=== PATIENT | male | born 1985 | race Caucasian/White ===

== ENCOUNTER 2021-06-08 13:34 | Emergency (ER) | payer OTHER, BC ==
[~2021-06-08] VITALS: Ht 182.9 cm; Wt 65.8 kg
[2021-06-08 14:45] LABS: ABSOLUTE EOSINOPHILS 0.1 thou/uL (0.0-0.7); ABSOLUTE MONOCYTES 0.7 thou/uL (0.0-1.2); ABSOLUTE NEUTROPHILS 8.7 thou/uL (1.6-8.1); BASOPHILS 0.5 %; EOSINOPHILS 1.2 %; HEMATOCRIT 49.4 % (42.0-52.0); HEMOGLOBIN 17.3 gm/dL (14.0-18.0); LYMPHOCYTES 9.5 %; MCV 99.9 fL (80.0-100.0); MONOCYTES 6.7 %; MPV 7.9 fl. (7.2-11.1); NUCLEATED RBCS 0 /100WBC; PLATELET COUNT* 165 thou/uL (150-400); POLYS 82.1 %; RBC 4.95 mil/uL (4.50-6.00); RDW-CV 13.4 % (10.5-14.5); WBC 10.6 thou/uL (4.0-11.0)
[2021-06-08 14:55] LABS: CALCIUM 9.2 mg/dL (8.5-10.1); CREATININE 0.9 mg/dL (0.6-1.3); POTASSIUM 3.7 mmol/L (3.5-5.1)
[2021-06-08 15:11] LABS: ALBUMIN 4.1 g/dL (3.4-5.0); TOTAL BILIRUBIN 0.8 mg/dL (<0.1-1.0); TOTAL PROTEIN 7.2 g/dL (6.4-8.2)
--- NOTE | 2021-06-08 15:46 | EKG ---
[place] [address] ELECTROCARDIOGRAM REPORT Name: MIRIANVINICIUS Room: [facility]#: [id number] Admission: 06/08/21 Attend Phys: Discharge: Date of : 85 Date of Service: 06/08/21 1453 Report #: [id number] THIS REPORT FOR: //name// [facility] ED Test Date: 2021-06-08 Test Time: 14:53:35 Pat Name: VINICIUS VELA Department: Room: Gender: Photography Instructor: : 1985 Requested By: Fiona Pritchett Order Number: [id number] MD: Chino Schulz Measurements Intervals [place] Rate: 82 P: 76 VA: 146 QRS: 88 QRSD: 89 T: 70 QT: 400 QTc: 468 Interpretive Statements RsR' in V1 sinus rhythm No previous ECG available for comparison Electronically Signed On 06-08-2021 15:46:32 CDT by Chino Schulz [email or web address] <ELECTRONICALLY SIGNED> By: Chino Schulz MD, [facility] 06/08/21 1546 1453 52 Chino Schulz MD, FACC /EPI
[2021-06-08] MEDS ORDERED: IBUPROFEN 800800 M1 PO (16:23)
[2021-06-08] MEDS ORDERED: CEPHALEXIN500 MG PO (16:23)
[2021-06-08 17:35] LABS: URINE BILIRUBIN NEGATIVE (Negative); URINE BLOOD TRACE (Negative); URINE CLARITY CLEAR; URINE COLOR YELLOW; URINE GLUCOSE-RANDOM NEGATIVE (Negative); URINE KETONES 1+ (Negative); URINE LEUKOCYTES-REFLEX NEGATIVE (Negative); URINE NITRITE-REFLEX NEGATIVE (Negative); URINE PROTEIN NEGATIVE (Negative); URINE SPECIFIC GRAVITY 1.025 (1.005-1.030); URINE UROBILINOGEN 0.2 E.U./dl (0.2-1.0)
[2021-06-08] MEDS ORDERED: NORCO5 PO (17:37)
[2021-06-08 17:43] LABS: AMP/METHAMP Negative (Negative); BARBITURATES Negative (Negative); BENZODIAZEPINES Negative (Negative); COCAINE Negative (Negative); METHADONE Negative (Negative); OPIATES Negative (Negative); PCP Negative (Negative); THC POSITIVE (Negative)
[2021-06-08 18:02] VITALS: BP 135/92
== END 2021-06-08 18:03 | disposition home or self-care (01) ==
LOC: M.ERS 13:34
PROVIDERS: Nurse Practitioner Family
DX: S02.2XXA Fracture of nasal bones, initial encounter for closed fracture (principal); S02.40CA Maxillary fracture, right side, initial encounter for closed fracture; S01.21XA Laceration without foreign body of nose, initial encounter; S00.03XA Contusion of scalp, initial encounter; S06.0X9A Concussion with loss of consciousness of unspecified duration, initial encounter; S80.11XA Contusion of right lower leg, initial encounter; R55 Syncope and collapse; F17.210 Nicotine dependence, cigarettes, uncomplicated; V89.2XXA Person injured in unspecified motor-vehicle accident, traffic, initial encounter; Y93.89 Activity, other specified; Y92.89 Other specified places as the place of occurrence of the external cause; Y99.8 Other external cause status